=== PATIENT | male | born 1955 | race Caucasian/White ===

== ENCOUNTER 2020-01-24 16:28 | Emergency (ER) | payer OTHER ==
[~2020-01-24] VITALS: Ht 175.3 cm; Wt 74.8 kg
[2020-01-24 16:45] VITALS: BP_SYST 132
== END 2020-01-24 18:15 | disposition left against medical advice (07) ==
LOC: SED 16:28
DX: N50.812 Left testicular pain (principal); Z53.21 Procedure and treatment not carried out due to patient leaving prior to being seen by health care provider

== ENCOUNTER 2022-02-28 11:27 | Emergency (ER) | payer OTHER ==
[~2022-02-28] VITALS: Ht 172.7 cm; Wt 66.2 kg
[2022-02-28 11:43] VITALS: BP_SYST 121
[2022-02-28] MEDS ORDERED: NACL 0.9% 1,000 ML IV ONE (12:15)
[2022-02-28] MEDS ORDERED: PHENAZOPYRIDINE HCL 100 MG TABLET PO ONE (12:30)
--- NOTE | 2022-02-28 12:30 | NUR ---
PATIENT IN BED SENT BY PCP FOR PRESSLEY AND URINE CHECK, PLACE IN ROOM 3 AAOX4 AWAITING FOR EDP FOR INITIAL ASSESSMENT.
[2022-02-28 12:32] LABS: BASOPHILS % (AUTO) 0.6 % (0.0-2.0); EOSINOPHILS # (AUTO) 0.1 K/uL (0.0-0.4); LYMPHOCYTES # (AUTO) 1.1 K/uL (1.0-5.5); LYMPHOCYTES % (AUTO) 16.2 % (20.5-51.5); MEAN CORPUSCULAR VOLUME 92 fL (79.0-98.0); MONOCYTES # (AUTO) 0.5 K/uL (0.0-1.0); NEUTROPHILS # (AUTO) 5.2 K/uL (1.8-7.7); NEUTROPHILS % (AUTO) 75.2 % (40.0-70.0); PLATELET COUNT (AUTO) 298 K/uL (130-430); RED BLOOD CELL COUNT(AUTO) 4.37 MIL/uL (4.2-6.2); RED CELL DISTRIBUTION WIDTH 12.7 % (9.0-15.0); WHITE BLOOD COUNT (AUTO) 6.9 K/uL (4.8-10.8)
[2022-02-28 13:30] VITALS: BP_SYST 138
[2022-02-28 13:52] LABS: PROTHROMBIN TIME 10.2 SECS (9.5-12.5)
--- NOTE | 2022-02-28 14:00 | NUR ---
EDP SEEN PATIENT WITH ORDER GUNNER OUT.
[2022-02-28 14:10] LABS: ANION GAP 8 (5-15); CALCIUM 9.2 mg/dL (8.4-11.0); CHLORIDE 103 mmol/L (98-107); CREATININE 1.04 mg/dL (0.55-1.30); GLUCOSE 130 mg/dL (70-99); UREA NITROGEN, BLOOD 11 mg/dL (8-21)
[2022-02-28 14:12] LABS: GFR AFRICAN AMERICAN 92 mL/min (>90)
[2022-02-28 14:26] LABS: ALANINE AMINOTRANSFERASE 64 U/L (12-78); ALBUMIN 2.9 g/dL (3.4-4.8); ASPARTATE AMINOTRANSFERASE 18 U/L (10-37); TOTAL BILIRUBIN 0.3 mg/dL (0.0-1.0)
[2022-02-28 14:38] LABS: BILIRUBIN,URINE NEGATIVE (NEGATIVE); BLOOD, URINE 2+ (NEGATIVE); CLARITY/URINE CLEAR (CLEAR); COLOR,URINE YELLOW (YELLOW); GLUCOSE,URINE NEGATIVE (NEGATIVE); KETONES,URINE NEGATIVE (NEGATIVE); NITRITE, URINE NEGATIVE (NEGATIVE); PH,URINE 5.5 (5.0-8.0); PROTEIN URINE NEGATIVE (NEGATIVE); UROBILINOGEN,URINE 0.2 (0.2-1.0)
[2022-02-28 14:40] LABS: LEUKOCYTE ESTERASE ,URINE NEGATIVE (NEGATIVE)
[2022-02-28 14:41] LABS: BACTERIA,URINE FEW /HPF (None Seen); MUCUS,URINE None Seen /LPF (None Seen); RBC,URINE NONE SEEN /HPF (0-3); WBC,URINE 0-3 /HPF (0-3)
--- NOTE | 2022-02-28 15:21 | NUR ---
ALL RESULT BACK EDP REASSESS PATIENT AND D/C HOME WITH INSTRUCTION.
--- NOTE | 2022-02-28 15:36 | NUR ---
Patient given written and verbal discharge instructions and verbalizes understanding. ER MD discussed with patient the results and treatment provided. Patient in stable condition. ID arm band removed. IV catheter removed intact and dressing applied, no active bleeding. Rx of given. Patient educated on pain management and to follow up with PMD. Pain Scale 0. Opportunity for questions provided and answered. Medication side effect fact sheet provided. LEFT WITH
== END 2022-02-28 15:36 | disposition home or self-care (01) ==
LOC: SED 11:27
DX: T83.098A Other mechanical complication of other urinary catheter, initial encounter (principal); Z87.440 Personal history of urinary (tract) infections; I11.0 Hypertensive heart disease with heart failure; I50.9 Heart failure, unspecified; Z79.899 Other long term (current) drug therapy
CPT/HCPCS: 99285; 96365; 71045; 80053; 81000; 85025; 85610; 85730; 87040; 87086; 84484; 36415; 93005; 83605; J1956

== ENCOUNTER 2022-03-19 15:07 | Observation (INO) | payer OTHER ==
[~2022-03-19] VITALS: Ht 175.3 cm; Wt 79.5 kg
[2022-03-19 15:10] VITALS: BP_SYST 127
--- NOTE | 2022-03-19 15:12 | NUR ---
Patient triaged and placed in waiting room. VSS and patient appears in no acute distress at this time. Accompanied by SELF, awaiting available bed, and MD notified of need for MSE.
--- NOTE | 2022-03-19 15:13 | NUR ---
SEEN AND EVALUATED BY DR SAAVEDRA IN TRIAGE ROOM
[2022-03-19 16:49] LABS: BASOPHILS # (AUTO) 0.1 K/uL (0.0-0.2); BASOPHILS % (AUTO) 0.9 % (0.0-2.0); EOSINOPHILS # (AUTO) 0.1 K/uL (0.0-0.4); HEMATOCRIT 41.8 % (36-54); HEMOGLOBIN 14.5 g/dL (14.0-18.0); LYMPHOCYTES % (AUTO) 18.2 % (20.5-51.5); MEAN CORPUSCULAR HEMOGLOBIN 31 pg (27-31); MEAN CORPUSCULAR HGB CONC 35 % (32-36); MEAN CORPUSCULAR VOLUME 91 fL (79.0-98.0); MONOCYTES # (AUTO) 0.5 K/uL (0.0-1.0); MONOCYTES % (AUTO) 9.5 % (1.7-9.3); NEUTROPHILS # (AUTO) 3.8 K/uL (1.8-7.7); NEUTROPHILS % (AUTO) 70.4 % (40.0-70.0); PLATELET COUNT (AUTO) 237 K/uL (130-430); RED BLOOD CELL COUNT(AUTO) 4.61 MIL/uL (4.2-6.2); WHITE BLOOD COUNT (AUTO) 5.5 K/uL (4.8-10.8)
[2022-03-19 17:23] LABS: CALCIUM 9.3 mg/dL (8.4-11.0); CREATININE 1.14 mg/dL (0.55-1.30); POTASSIUM 4.2 mmol/L (3.5-5.1)
[2022-03-19 17:29] LABS: ALBUMIN 3.7 g/dL (3.4-4.8); TOTAL BILIRUBIN 0.4 mg/dL (0.0-1.0)
[2022-03-19 17:37] LABS: BILIRUBIN,URINE NEGATIVE (NEGATIVE); BLOOD, URINE 1+ (NEGATIVE); CLARITY/URINE CLOUDY (CLEAR); COLOR,URINE YELLOW (YELLOW); GLUCOSE,URINE NEGATIVE (NEGATIVE); KETONES,URINE NEGATIVE (NEGATIVE); LEUKOCYTE ESTERASE ,URINE 3+ (NEGATIVE); NITRITE, URINE POSITIVE (NEGATIVE); PH,URINE 6.5 (5.0-8.0); PROTEIN URINE NEGATIVE (NEGATIVE); UROBILINOGEN,URINE 0.2 (0.2-1.0)
[2022-03-19 17:52] LABS: BACTERIA,URINE MANY /HPF (None Seen); WBC,URINE 20-50 /HPF (0-3)
--- NOTE | 2022-03-19 18:05 | NUR ---
BROUGHT BACK TO BED #6 AND TRIAGED. REPORT GIVEN TO NURSE
[2022-03-19] MEDS ORDERED: MEROPENEM 1 GM IVPB PREMIX 50 ML IV ONE (18:15)
[2022-03-19] MEDS ORDERED: NACL 0.9% 1,000 ML IV ONE (18:15)
--- NOTE | 2022-03-19 19:33 | NUR ---
Admit bed requested Patient will be admitted to care of . Admitted to MED SURG unit. Diagnosis RESISTANCE UTI Inpatient (Yes or No) NO Observation (Yes or No) YES Orientation concerns or request close to nursing station (Yes or No) NO Covid Status PENDING On vent or bipap NO Isolation requirements NO Needs a sitter NO From Home (Yes or if No enter name of facility) YES Requires Dialysis (Yes or No) NO Med Rec Completed (Yes of No) PENDING
--- NOTE | 2022-03-19 19:45 | NUR ---
# 20 gauge angiocath placed to R AC. Use of asceptic technique. Opsite placed over site. Blood return noted. Flushed with 10 cc of normal saline. No evidence of infiltration noted. Patient tolerated well.
[2022-03-19] MEDS ORDERED: MEROPENEM 500 MG VIAL IV ONE (20:15)
--- NOTE | 2022-03-19 21:42 | NUR ---
Patient will be admitted to care of MD Vidal. Admitted to MS unit. Will go to room 107B. Complete and up to date summary report printed. SBAR report given at bedside to receiving RAIMUNDO Chung with opportunity for questions.
[2022-03-19 22:00] VITALS: BP_SYST 126
[2022-03-20] VITALS: BP_SYST 118
[2022-03-20] MEDS ORDERED: MEROPENEM 1 GM IVPB PREMIX 50 ML IV SCH (04:00)
--- NOTE | 2022-03-20 04:21 | NUR ---
CONSULTATION PAGED/CALLED Reason for Consultation: UTI Person Who was Notified: ZAC Consulting Physician: DENISHA Support Teacher Specialty: ID Ordering Physician: ORI
[2022-03-20] MEDS ORDERED: MEROPENEM 500 MG VIAL IV ONE (04:35)
[2022-03-20 06:33] LABS: BASOPHILS # (AUTO) 0.1 K/uL (0.0-0.2); BASOPHILS % (AUTO) 1.2 % (0.0-2.0); EOSINOPHILS # (AUTO) 0.1 K/uL (0.0-0.4); EOSINOPHILS % (AUTO) 1.7 % (0.0-4.0); HEMATOCRIT 38.4 % (36-54); HEMOGLOBIN 13.4 g/dL (14.0-18.0); LYMPHOCYTES # (AUTO) 1.5 K/uL (1.0-5.5); LYMPHOCYTES % (AUTO) 29.7 % (20.5-51.5); MEAN CORPUSCULAR HEMOGLOBIN 31 pg (27-31); MEAN CORPUSCULAR HGB CONC 35 % (32-36); MEAN CORPUSCULAR VOLUME 90 fL (79.0-98.0); MONOCYTES # (AUTO) 0.5 K/uL (0.0-1.0); MONOCYTES % (AUTO) 9.2 % (1.7-9.3); NEUTROPHILS # (AUTO) 2.9 K/uL (1.8-7.7); NEUTROPHILS % (AUTO) 58.2 % (40.0-70.0); PLATELET COUNT (AUTO) 209 K/uL (130-430); RED BLOOD CELL COUNT(AUTO) 4.29 MIL/uL (4.2-6.2); WHITE BLOOD COUNT (AUTO) 4.9 K/uL (4.8-10.8)
[2022-03-20 08:08] LABS: CALCIUM 9.1 mg/dL (8.4-11.0); CREATININE 0.96 mg/dL (0.55-1.30); POTASSIUM 3.7 mmol/L (3.5-5.1)
[2022-03-20 08:15] LABS: ALBUMIN 3.3 g/dL (3.4-4.8); TOTAL BILIRUBIN 0.4 mg/dL (0.0-1.0)
[2022-03-20] MEDS: ERTAPENEM SODIUM 1 GM in NS 50 ML IV SCH (14:23)
[2022-03-20] MEDS ORDERED: GABA-533 PO (16:53)
[2022-03-20] MEDS ORDERED: AMLO5TAB4 PO (16:53)
[2022-03-20] MEDS ORDERED: ROSU10TA2 PO (16:53)
[2022-03-20] MEDS ORDERED: CLON1TAB12 PO (16:53)
[2022-03-20] MEDS ORDERED: MELA10TA2 PO (16:53)
[2022-03-20] MEDS ORDERED: METO50TA7 PO (16:53)
[2022-03-20] MEDS ORDERED: MIRT-91 PO (16:53)
[2022-03-20] MEDS ORDERED: QUET200T PO (16:53)
--- NOTE | 2022-03-20 16:57 | NUR ---
IV abx approve to [facility] auth# [id number] phone#
[2022-03-20] MEDS ORDERED: ROSUVASTATIN CALCIUM 5 MG/TAB (CRESTOR) PO SCH (18:30)
[2022-03-20] MEDS ORDERED: ATORVASTATIN 20 MG TABLET PO ONE (18:45)
[2022-03-20] MEDS ORDERED: clonazePAM 0.5 MG TABLET PO ONE (18:45)
[2022-03-20] MEDS ORDERED: GABAPENTIN 300 MG CAPSULE PO ONE (18:45)
[2022-03-20] MEDS ORDERED: amLODIPine BESYLATE 5 MG TABLET PO ONE (18:45)
[2022-03-20] MEDS ORDERED: TAMSULOSIN HCL 0.4 MG CAP PO ONE (19:00)
--- NOTE | 2022-03-20 19:30 | NUR ---
OPENING NOTE REPORT RECEIVED FROM DAYSHIFT NURSE. PATIENT RECEIVED WALKING FROM BATHROOM, GAIT STEADY. NO S/S OF ACUTE DISTRESS, DENIES PAIN. BREATHING EVEN AND UNLABORED. IV SITE PATENT, NO SIGNS OF INFILTRATION OR INFECTION NOTED. CALL LIGHT WITH PATIENT. BED IS LOCKED AND AT LOWEST POSITION. WILL CONTINUE TO MONITOR.
[2022-03-20] MEDS ORDERED: ZOLPIDEM TARTRATE 5 MG TABLET PO PRN (20:15)
[2022-03-20] MEDS: METOPROLOL SUCCINATE 50 MG TAB.SR.24H (TOPROL XL) PO SCH (20:42)
[2022-03-20] MEDS ORDERED: MIRTAZAPINE 15 MG TABLET PO SCH (21:00)
[2022-03-20] MEDS ORDERED: QUEtiapine FUMARATE 100 MG TABLET PO SCH (21:00)
--- NOTE | 2022-03-20 23:00 | NUR ---
ROUNDS PATIENT IN BED, RESTING. NO SIGNS OF DISCOMFORT. CHEST RISE AND FALL EVEN BILATERALLY. ALL NEEDS MET. WILL CONTINUE TO MONITOR.
[2022-03-21 02:51] LABS: BILIRUBIN,URINE NEGATIVE (NEGATIVE); BLOOD, URINE NEGATIVE (NEGATIVE); CLARITY/URINE SL CLOUDY (CLEAR); COLOR,URINE YELLOW (YELLOW); GLUCOSE,URINE NEGATIVE (NEGATIVE); KETONES,URINE NEGATIVE (NEGATIVE); LEUKOCYTE ESTERASE ,URINE 2+ (NEGATIVE); NITRITE, URINE NEGATIVE (NEGATIVE); PH,URINE 7.5 (5.0-8.0); PROTEIN URINE TRACE (NEGATIVE); UROBILINOGEN,URINE 0.2 (0.2-1.0)
--- NOTE | 2022-03-21 03:00 | NUR ---
ROUNDS PATIENT IN BED, RESTING. NO SIGNS OF DISCOMFORT. CHEST RISE AND FALL EVEN BILATERALLY. ALL NEEDS MET. WILL CONTINUE TO MONITOR.
[2022-03-21 03:21] LABS: MUCUS,URINE None Seen /LPF (None Seen)
[2022-03-21 03:22] LABS: BACTERIA,URINE FEW /HPF (None Seen); RBC,URINE NONE SEEN /HPF (0-3); YEAST,URINE None Seen /HPF (None Seen)
[2022-03-21 03:23] LABS: URINE SULFO SALICYLIC ACID NEGATIVE (NEGATIVE)
--- NOTE | 2022-03-21 06:51 | NUR ---
CLOSING NOTE PATIENT IN BED, AWAKE, NO S/S OF ACUTE DISTRESS. BREATHING EVEN AND UNLABORED. IV SITE IS PATENT, NO SIGNS OF INFILTRATION OR INFECTION NOTED. ALL NEEDS MET THROUGHOUT SHIFT. FALL, SAFETY PRECAUTIONS MAINTAINED THROUGHOUT SHIFT. WILL CONTINUE TO MONITOR UNTIL PATIENT CARE IS ENDORSED TO ONCOMING DAYSHIFT NURSE.
[2022-03-21] MEDS: amLODIPine BESYLATE 5 MG TABLET PO SCH ×2 (09:00→10:57)
[2022-03-21] MEDS ORDERED: TAMSULOSIN HCL 0.4 MG CAP PO SCH (09:00)
[2022-03-21] MEDS: GABAPENTIN 300 MG CAPSULE PO SCH ×2 (09:00→10:49)
[2022-03-21] MEDS: clonazePAM 0.5 MG TABLET PO SCH ×2 (09:00→10:48)
[2022-03-21] MEDS: ATORVASTATIN 20 MG TABLET PO SCH ×2 (09:00→10:47)
[2022-03-21] MEDS ORDERED: TAMS-11 PO (10:52)
[2022-03-21] MEDS ORDERED: ERTA1VIA IJ (10:54)
[2022-03-21] MEDS: METOPROLOL SUCCINATE 50 MG TAB.SR.24H (TOPROL XL) PO SCH (10:55)
[2022-03-21] MEDS: ERTAPENEM SODIUM 1 GM in NS 50 ML IV SCH (13:56)
[2022-03-21 14:19] VITALS: BP_SYST 122
[2022-03-21 14:52] LABS: POTASSIUM 3.9 mmol/L (3.5-5.1)
[2022-03-21 14:53] LABS: CALCIUM 8.3 mg/dL (8.4-11.0); CREATININE 1.04 mg/dL (0.55-1.30)
--- NOTE | 2022-04-03 16:43 | NUR ---
IV ADMINISTRATION END TIME (Observation Patients ONLY): late entry IV infusion of Sodium Chloride started at 20:19 on 03/19/22 and ended at 02:00 on 03/20/22 IV infusion of Meropenem started at 20:19 on 03/19/22 and ended at 20:50 on 03/20/22 IV infusion of Meropenem started at 04:37 on 03/20/22 and ended at 05:30 on 03/20/22 IV infusion of Ertapenem started at 14:23 on 03/20/22 and ended at 15:30 on 03/20/22 IV infusion of Ertapenem started at 13:56 on 03/21/22 and ended at 15:00 on 03/21/22
== END 2022-03-21 15:45 | disposition home health service (06) ==
LOC: SED 15:07 → SMU 19:26
PROVIDERS: ADMIT Internal Medicine; ATTEND Internal Medicine
DX: N39.0 Urinary tract infection, site not specified (principal); Z20.822 Contact with and (suspected) exposure to COVID-19; B96.20 Unspecified Escherichia coli [E. coli] as the cause of diseases classified elsewhere; N40.0 Benign prostatic hyperplasia without lower urinary tract symptoms; I10 Essential (primary) hypertension; E78.5 Hyperlipidemia, unspecified; F32.A Depression, unspecified; G47.00 Insomnia, unspecified; K21.9 Gastro-esophageal reflux disease without esophagitis; Z79.899 Other long term (current) drug therapy
CPT/HCPCS: 96365; 80053 ×2; 81000 ×2; 85025 ×2; 87040; 87086; 36415 ×3; 99284; 83605; 87426; 96366 ×2; 96367; 80048; J2185 ×4; G0378 ×3; J1335